=== PATIENT | female | born 1955 | race Caucasian/White ===

== ENCOUNTER → 2016-10-27 | Outpatient (CLI) | payer OTHER ==
[~2016-10-27] MED LIST: BACTRIM DS TAB1 EACH PO; DRISDOL 5050000 UNIT PO; NORCO 5-325 MG1 TAB PO; SYNTHROID75 MCG PO; TYLENOL EXTRA500 MG PO; ULTRAM50 MG PO; XARELTO10 MG PO
== END | disposition disaster alternative care site (69) ==
LOC: GRAD 07:25
DX: S72.001D Fracture of unspecified part of neck of right femur, subsequent encounter for closed fracture with routine healing (principal); S32.302D Unspecified fracture of left ilium, subsequent encounter for fracture with routine healing; S32.301D Unspecified fracture of right ilium, subsequent encounter for fracture with routine healing; X58.XXXD Exposure to other specified factors, subsequent encounter

== ENCOUNTER → 2017-03-20 | Outpatient (CLI) | payer OTHER ==
[2017-03-20 12:25] LABS: MAGNESIUM 2.4 mg/dL (1.8-2.6)
[2017-03-20 12:26] LABS: PHOSPHORUS 0.9 mg/dL (2.5-4.9)
[2017-03-20 12:49] LABS: URINE CALCIUM VOLUME 1140 mL; URINE CREAT VOL 1140 mL
== END | disposition disaster alternative care site (69) ==
LOC: GLAB 11:21
PROVIDERS: Internal Medicine
DX: E83.39 Other disorders of phosphorus metabolism (principal)